=== PATIENT | female | born 1980 | race Caucasian/White ===

== ENCOUNTER → 2020-06-25 | Outpatient (CLI) | payer BC ==
[~2020-06-25] MED LIST: ADIPEX-P37.5 MG PO; FLEXERIL 1010 MG/TAB PO; NAPROSYN500 MG PO; NO HOME MEDICATIONS; NORCO 325 MG-51 TAB PO; PREDNISONE20 MG PO
== END ==
LOC: MC.RAD 13:30
DX: Z12.31 Encounter for screening mammogram for malignant neoplasm of breast (principal); N64.89 Other specified disorders of breast

== ENCOUNTER → 2020-07-02 | Outpatient (CLI) | payer BC | LOC: MC.RAD 08:00 | DX: N60.01 Solitary cyst of right breast (principal) ==

== ENCOUNTER → 2021-11-11 | Outpatient (CLI) | payer BC | LOC: COL.RAD 09:14 | DX: R74.01 Elevation of levels of liver transaminase levels (principal) ==